=== PATIENT | male | born 1945 | race Two or more races ===

== ENCOUNTER 2022-05-29 22:26 | Inpatient (IN) | payer OTHER ==
[~2022-05-29] VITALS: Ht 170.2 cm; Wt 115.7 kg
[2022-05-29 22:40] VITALS: BP 128/58
[2022-05-29 23:01] VITALS: BP 133/57
[2022-05-29] MEDS ORDERED: HYDROCODONE/APAP 5/325MG TABLET PO PRN (23:30)
[2022-05-29] MEDS ORDERED: MORPHINE SULFATE INJ 2 MG/ML DISP.SYRIN IV PRN (23:30)
[2022-05-29] MEDS ORDERED: DEXTROSE 50%-WATER 50 ML DISP.SYRIN IV PRN (23:30)
[2022-05-29] MEDS ORDERED: MAGNESIUM HYDROXIDE 30 ML UDC PO PRN (23:30)
[2022-05-29] MEDS ORDERED: ONDANSETRON HCL/PF 4 MG/2 ML VIAL IVP PRN (23:30)
[2022-05-29] MEDS ORDERED: ACETAMINOPHEN 325 MG TABLET PO PRN (23:30)
[2022-05-29] MEDS ORDERED: MAG HYDROX/AL HYDROX/SIMETH 30 ML UDC PO PRN (23:30)
[2022-05-29] MEDS ORDERED: Z GUARD REMEDY 4 OZ OINT TP PRN (23:30)
[2022-05-30] VITALS (30 sets, daily range): BP systolic 93–143; BP diastolic 27–117
[2022-05-30 00:06] LABS: ABG BASE EXCESS 3.5 mmol/L; ABG OXYGEN SATURATION 85.8 % (92.0-98.5); ABG PCO2 60.3 mmHg (35.0-45.0); ABG PH 7.334 (7.350-7.450); ABG PO2 54.7 mmHg (75.0-100.0); COHb 0.8 % (0.5-1.5); MetHb 0.2 % (0.0-1.5); O2Hb 84.9 % (94.0-97.0); SITE, ABG Left Radial
[2022-05-30] MEDS: IPRATROPIUM NEB FS 0.5 MG/2.5 ML AMPUL.NEB NEB SCH ×5 (00:16→19:38)
[2022-05-30] MEDS: ALBUTEROL FS 2.5 MG/3 ML VIAL.NEB NEB SCH ×5 (00:16→19:38)
[2022-05-30] MEDS ORDERED: ENOXAPARIN SODIUM 40 MG/0.4 ML DISP.SYRIN SQ ONE (01:30)
[2022-05-30] MEDS ORDERED: CEFEPIME 1 GM in IV D5W 50 ML IV ONE (01:30)
[2022-05-30] MEDS ORDERED: CEFEPIME 1 GM VIAL ONE (02:37)
[2022-05-30 04:17] LABS: BASOPHILS % (AUTO) 0.1 % (0.0-2.0); HEMATOCRIT 46 % (39-51); HEMOGLOBIN 14.4 g/dL (13.5-17.5); LYMPHOCYTES # (AUTO) 0.4 K/uL (0.8-4.8); LYMPHOCYTES % (AUTO) 3.3 % (20.0-44.0); MEAN CORPUSCULAR HGB CONC 32 g/dl (31.0-36.0); MEAN CORPUSCULAR VOLUME 86 fL (80-96); MONOCYTES # (AUTO) 0.6 K/uL (0.1-1.30); MONOCYTES % (AUTO) 4.7 % (2.0-12.0); NEUTROPHILS # (AUTO) 12.4 K/uL (1.8-8.9); NEUTROPHILS % (AUTO) 91.9 % (43.0-81.0); PLATELET COUNT (AUTO) 181 K/uL (150-450); RED BLOOD CELL COUNT(AUTO) 5.31 MIL/uL (4.5-6.0); WHITE BLOOD COUNT (AUTO) 13.5 K/uL (4.3-11.0)
[2022-05-30 04:27] LABS: ALANINE AMINOTRANSFERASE 20 U/L (12-78); ALBUMIN 2.9 g/dL (3.4-5.0); ALKALINE PHOSPHATASE 83 U/L (46-116); ASPARTATE AMINOTRANSFERASE 13 U/L (15-37); BILIRUBIN,DIRECT 0.1 mg/dL (0.0-0.2); BILIRUBIN,TOTAL 0.4 mg/dL (0.2-1.0); CALCIUM, SERUM 8.6 mg/dL (8.5-10.1); CARBON DIOXIDE 37 mmol/L (21-32); CHLORIDE 101 mmol/L (98-107); CREATININE 1.3 mg/dL (0.6-1.3); GLUCOSE 180 mg/dL (74-106); MAGNESIUM 2.2 mg/dL (1.8-2.4); PHOSPHORUS 4.8 mg/dL (2.5-4.9); POTASSIUM 4.3 mmol/L (3.5-5.1); SODIUM SERUM 140 mmol/L (136-145); TOTAL PROTEIN, SERUM 6.7 g/dL (6.4-8.2); UREA NITROGEN, BLOOD 32 mg/dL (7-18)
[2022-05-30 04:29] LABS: CHOLESTEROL 131 mg/dL (<200); HDL CHOLESTEROL 58 mg/dL (40-60); LDL 51 mg/dL (0-99); TRIGLYCERIDES 109 mg/dL (30-150)
[2022-05-30] MEDS ORDERED: methylPREDNISolone SOD SUCC 40 MG/ML VIAL IV SCH (05:00)
[2022-05-30 05:09] LABS: ABG BASE EXCESS 6.9 mmol/L; ABG OXYGEN SATURATION 97.5 % (92.0-98.5); ABG PCO2 75.1 mmHg (35.0-45.0); ABG PH 7.303 (7.350-7.450); ABG PO2 108.2 mmHg (75.0-100.0); AaDO2 529.7 mmHg; COHb 0.5 % (0.5-1.5); MetHb 0.2 % (0.0-1.5); O2Hb 96.8 % (94.0-97.0); SITE, ABG Left Radial
[2022-05-30] MEDS: BLOOD SUGAR DIAGNOSTIC 1 EACH STRIP IN SCH ×4 (07:30→21:17)
[2022-05-30] MEDS ORDERED: ASCO500C18 PO (08:05)
[2022-05-30] MEDS ORDERED: MEMA10TA56 PO (08:05)
[2022-05-30] MEDS ORDERED: ROSU40TA23 PO (08:05)
[2022-05-30] MEDS ORDERED: LOSA50TA39 PO (08:05)
[2022-05-30] MEDS ORDERED: CLOP75TA15 PO (08:05)
[2022-05-30] MEDS ORDERED: CITA10TA9 PO (08:05)
[2022-05-30] MEDS: FUROSEMIDE 40 MG/4 ML VIAL IV SCH ×3 (08:18→17:38)
[2022-05-30] MEDS: PANTOPRAZOLE 40 MG TABLET.DR PO SCH (08:18)
[2022-05-30] MEDS: CEFEPIME 2 GM in IV D5W 100 ML IV SCH ×2 (08:24→21:09)
[2022-05-30] MEDS: INSULIN REGULAR, HUMAN 100 UNIT/ML 3 ML VIAL SQ PRN ×3 (08:38→17:40)
[2022-05-30 12:41] LABS: THYROID STIMULATING HORMONE 1.375 uIU/mL (0.358-3.74)
[2022-05-30] MEDS: ACETYLCYSTEINE 10% SOLN 400 MG/4 ML VIAL NEB SCH ×2 (14:33→23:30)
[2022-05-30] MEDS ORDERED: FUROSEMIDE 40 MG/4 ML VIAL IV SCH (17:30)
[2022-05-30] MEDS: ENOXAPARIN SODIUM 40 MG/0.4 ML DISP.SYRIN SQ SCH (21:06)
[2022-05-31] VITALS (24 sets, daily range): BP systolic 91–155; BP diastolic 42–88
[2022-05-31] MEDS ORDERED: CEFEPIME 1 GM in IV D5W 50 ML IV SCH (01:30)
[2022-05-31 05:12] LABS: EOSINOPHILS % (AUTO) 0.3 % (0.0-6.0); HEMATOCRIT 49 % (39-51); HEMOGLOBIN 15.5 g/dL (13.5-17.5); LYMPHOCYTES # (AUTO) 1.1 K/uL (0.8-4.8); LYMPHOCYTES % (AUTO) 7.8 % (20.0-44.0); MEAN CORPUSCULAR HGB CONC 31 g/dl (31.0-36.0); MEAN CORPUSCULAR VOLUME 85 fL (80-96); MONOCYTES # (AUTO) 1.4 K/uL (0.1-1.30); MONOCYTES % (AUTO) 10.3 % (2.0-12.0); NEUTROPHILS # (AUTO) 11.3 K/uL (1.8-8.9); NEUTROPHILS % (AUTO) 81.6 % (43.0-81.0); PLATELET COUNT (AUTO) 191 K/uL (150-450); RED BLOOD CELL COUNT(AUTO) 5.79 MIL/uL (4.5-6.0); WHITE BLOOD COUNT (AUTO) 13.8 K/uL (4.3-11.0)
[2022-05-31 05:29] LABS: ALANINE AMINOTRANSFERASE 19 U/L (12-78); ALKALINE PHOSPHATASE 85 U/L (46-116); ASPARTATE AMINOTRANSFERASE 12 U/L (15-37); BILIRUBIN,TOTAL 0.5 mg/dL (0.2-1.0); CALCIUM, SERUM 8.8 mg/dL (8.5-10.1); CHLORIDE 98 mmol/L (98-107); CREATININE 1.3 mg/dL (0.6-1.3); GLUCOSE 148 mg/dL (74-106); MAGNESIUM 2.7 mg/dL (1.8-2.4); PHOSPHORUS 4.7 mg/dL (2.5-4.9); POTASSIUM 4.3 mmol/L (3.5-5.1); SODIUM SERUM 141 mmol/L (136-145); UREA NITROGEN, BLOOD 43 mg/dL (7-18)
[2022-05-31 05:49] LABS: CARBON DIOXIDE 44 mmol/L (21-32)
[2022-05-31] MEDS: ACETYLCYSTEINE 10% SOLN 400 MG/4 ML VIAL NEB SCH ×4 (07:35→23:28)
[2022-05-31] MEDS: IPRATROPIUM NEB FS 0.5 MG/2.5 ML AMPUL.NEB NEB SCH ×5 (07:35→20:09)
[2022-05-31] MEDS: ALBUTEROL FS 2.5 MG/3 ML VIAL.NEB NEB SCH ×5 (07:35→20:09)
[2022-05-31] MEDS: BLOOD SUGAR DIAGNOSTIC 1 EACH STRIP IN SCH ×4 (07:59→21:43)
[2022-05-31] MEDS: PANTOPRAZOLE 40 MG TABLET.DR PO SCH (08:48)
[2022-05-31] MEDS: CEFEPIME 2 GM in IV D5W 100 ML IV SCH ×2 (08:48→21:08)
[2022-05-31] MEDS: ASPIRIN 81 MG TAB.CHEW PO SCH (08:48)
[2022-05-31 09:52] LABS: ABG BASE EXCESS 9.1 mmol/L; ABG OXYGEN SATURATION 93.8 % (92.0-98.5); ABG PCO2 60.3 mmHg (35.0-45.0); ABG PH 7.401 (7.350-7.450); ABG PO2 71.1 mmHg (75.0-100.0); AaDO2 115.6 mmHg; MetHb 0.2 % (0.0-1.5); O2Hb 92.7 % (94.0-97.0); SITE, ABG Left Brachial; VENT MODE, BG 5 L NC
[2022-05-31] MEDS: LOSARTAN POTASSIUM 50 MG TABLET PO SCH (12:30)
[2022-05-31] MEDS ORDERED: Medication Not On Formulary EA (Rosuvastatin Calcium 1 TAB) PO SCH (12:30)
[2022-05-31] MEDS ORDERED: Medication Not On Formulary EA (Ascorbic Acid (Vitamin C) 500 MG) PO SCH (12:30)
[2022-05-31] MEDS ORDERED: MEMANTINE HCL PO SCH (12:30)
[2022-05-31] MEDS: INSULIN REGULAR, HUMAN 100 UNIT/ML 3 ML VIAL SQ PRN ×2 (12:54→21:46)
[2022-05-31] MEDS: ASCORBIC ACID 500 MG TABLET PO SCH (14:55)
[2022-05-31] MEDS: CLOPIDOGREL BISULFATE 75 MG TABLET PO SCH (14:55)
[2022-05-31] MEDS: CITALOPRAM HYDROBROMIDE 10 MG TABLET PO SCH (14:56)
[2022-05-31] MEDS: MEMANTINE HCL 5 MG TABLET PO SCH (18:13)
[2022-05-31] MEDS: ATORVASTATIN 40 MG TABLET PO SCH (21:44)
[2022-05-31] MEDS: ENOXAPARIN SODIUM 40 MG/0.4 ML DISP.SYRIN SQ SCH (21:45)
[2022-06-01] VITALS (27 sets, daily range): BP systolic 91–146; BP diastolic 16–91
[2022-06-01] MEDS: ACETYLCYSTEINE 10% SOLN 400 MG/4 ML VIAL NEB SCH ×2 (07:35→14:47)
[2022-06-01] MEDS: ALBUTEROL FS 2.5 MG/3 ML VIAL.NEB NEB SCH ×4 (07:35→20:12)
[2022-06-01] MEDS: IPRATROPIUM NEB FS 0.5 MG/2.5 ML AMPUL.NEB NEB SCH ×4 (07:35→20:12)
[2022-06-01] MEDS: PANTOPRAZOLE 40 MG TABLET.DR PO SCH (07:57)
[2022-06-01] MEDS: BLOOD SUGAR DIAGNOSTIC 1 EACH STRIP IN SCH ×4 (07:57→22:02)
[2022-06-01] MEDS: LOSARTAN POTASSIUM 50 MG TABLET PO SCH (09:00)
[2022-06-01] MEDS: ASPIRIN 81 MG TAB.CHEW PO SCH (10:43)
[2022-06-01] MEDS: CLOPIDOGREL BISULFATE 75 MG TABLET PO SCH (10:43)
[2022-06-01] MEDS: MEMANTINE HCL 5 MG TABLET PO SCH ×2 (10:43→17:09)
[2022-06-01] MEDS: ASCORBIC ACID 500 MG TABLET PO SCH (10:44)
[2022-06-01] MEDS: CITALOPRAM HYDROBROMIDE 10 MG TABLET PO SCH (10:44)
[2022-06-01] MEDS: acetaZOLAMIDE SODIUM 500 MG/VIAL VIAL IV SCH (10:46)
[2022-06-01] MEDS: CEFEPIME 2 GM in IV D5W 100 ML IV SCH ×2 (10:46→21:01)
[2022-06-01] MEDS: INSULIN REGULAR, HUMAN 100 UNIT/ML 3 ML VIAL SQ PRN ×2 (13:11→21:28)
[2022-06-01] MEDS: IV NS 0.9% 250 ML IV PRN (21:10)
[2022-06-01] MEDS: ATORVASTATIN 40 MG TABLET PO SCH (21:26)
[2022-06-01] MEDS: ENOXAPARIN SODIUM 40 MG/0.4 ML DISP.SYRIN SQ SCH (21:27)
[2022-06-02] VITALS (24 sets, daily range): BP systolic 90–136; BP diastolic 42–112
[2022-06-02] MEDS: PANTOPRAZOLE 40 MG TABLET.DR PO SCH (07:18)
[2022-06-02] MEDS: BLOOD SUGAR DIAGNOSTIC 1 EACH STRIP IN SCH ×4 (07:18→21:43)
[2022-06-02 07:25] LABS: BASOPHILS % (AUTO) 0.1 % (0.0-2.0); EOSINOPHILS % (AUTO) 3.5 % (0.0-6.0); HEMATOCRIT 47 % (39-51); HEMOGLOBIN 15.4 g/dL (13.5-17.5); LYMPHOCYTES # (AUTO) 0.8 K/uL (0.8-4.8); LYMPHOCYTES % (AUTO) 9.7 % (20.0-44.0); MEAN CORPUSCULAR HGB CONC 33 g/dl (31.0-36.0); MEAN CORPUSCULAR VOLUME 84 fL (80-96); MONOCYTES % (AUTO) 12.5 % (2.0-12.0); NEUTROPHILS % (AUTO) 74.2 % (43.0-81.0); PLATELET COUNT (AUTO) 175 K/uL (150-450); RED BLOOD CELL COUNT(AUTO) 5.57 MIL/uL (4.5-6.0); WHITE BLOOD COUNT (AUTO) 8.1 K/uL (4.3-11.0)
[2022-06-02 07:47] LABS: CALCIUM, SERUM 8.8 mg/dL (8.5-10.1); CREATININE 0.9 mg/dL (0.6-1.3); POTASSIUM 4.3 mmol/L (3.5-5.1)
[2022-06-02] MEDS: IPRATROPIUM NEB FS 0.5 MG/2.5 ML AMPUL.NEB NEB SCH ×4 (07:58→20:26)
[2022-06-02] MEDS: ACETYLCYSTEINE 10% SOLN 400 MG/4 ML VIAL NEB SCH ×3 (07:58→14:48)
[2022-06-02] MEDS: ALBUTEROL FS 2.5 MG/3 ML VIAL.NEB NEB SCH ×4 (07:58→20:26)
[2022-06-02] MEDS: CEFEPIME 2 GM in IV D5W 100 ML IV SCH ×3 (08:19→20:02)
[2022-06-02] MEDS: ASPIRIN 81 MG TAB.CHEW PO SCH (08:25)
[2022-06-02] MEDS: CITALOPRAM HYDROBROMIDE 10 MG TABLET PO SCH (08:25)
[2022-06-02] MEDS: ASCORBIC ACID 500 MG TABLET PO SCH (08:25)
[2022-06-02] MEDS: MEMANTINE HCL 5 MG TABLET PO SCH ×2 (08:25→17:44)
[2022-06-02] MEDS: acetaZOLAMIDE SODIUM 500 MG/VIAL VIAL IV SCH (08:27)
[2022-06-02] MEDS: CLOPIDOGREL BISULFATE 75 MG TABLET PO SCH ×2 (09:00→09:46)
[2022-06-02] MEDS: LOSARTAN POTASSIUM 50 MG TABLET PO SCH ×2 (09:00→09:45)
[2022-06-02] MEDS ORDERED: FENTANYL PF 100MCG/2ML AMPUL ONE (09:20)
[2022-06-02] MEDS ORDERED: FAMOTIDINE/PF INJ 20 MG/2 ML VIAL IV ONE (09:21)
[2022-06-02] MEDS ORDERED: SUCCINYLCHOLINE CHLORIDE 20 MG/ML VIAL ONE (09:21)
[2022-06-02] MEDS: INSULIN REGULAR, HUMAN 100 UNIT/ML 3 ML VIAL SQ PRN (13:48)
[2022-06-02] MEDS: IV NS 0.9% 250 ML IV PRN (20:02)
[2022-06-02] MEDS: ENOXAPARIN SODIUM 40 MG/0.4 ML DISP.SYRIN SQ SCH (21:42)
[2022-06-02] MEDS: ATORVASTATIN 40 MG TABLET PO SCH (21:42)
[2022-06-03] VITALS (26 sets, daily range): BP systolic 70–127; BP diastolic 25–92
[2022-06-03] MEDS: ACETYLCYSTEINE 10% SOLN 400 MG/4 ML VIAL NEB SCH ×3 (00:14→14:49)
[2022-06-03] MEDS: CEFEPIME 2 GM in IV D5W 100 ML IV SCH ×3 (05:04→21:00)
[2022-06-03] MEDS: ALBUTEROL FS 2.5 MG/3 ML VIAL.NEB NEB SCH ×4 (07:16→19:54)
[2022-06-03] MEDS: IPRATROPIUM NEB FS 0.5 MG/2.5 ML AMPUL.NEB NEB SCH ×4 (07:16→19:54)
[2022-06-03] MEDS: BLOOD SUGAR DIAGNOSTIC 1 EACH STRIP IN SCH ×4 (08:07→21:03)
[2022-06-03] MEDS: PANTOPRAZOLE 40 MG TABLET.DR PO SCH (08:07)
[2022-06-03] MEDS: MEMANTINE HCL 5 MG TABLET PO SCH ×2 (08:08→17:22)
[2022-06-03] MEDS: ASCORBIC ACID 500 MG TABLET PO SCH (08:09)
[2022-06-03] MEDS: ASPIRIN 81 MG TAB.CHEW PO SCH (08:09)
[2022-06-03] MEDS: CITALOPRAM HYDROBROMIDE 10 MG TABLET PO SCH (08:09)
[2022-06-03] MEDS: LOSARTAN POTASSIUM 50 MG TABLET PO SCH (08:10)
[2022-06-03] MEDS: acetaZOLAMIDE SODIUM 500 MG/VIAL VIAL IV SCH (08:11)
[2022-06-03] MEDS: methylPREDNISolone SOD SUCC 125 MG/2ML VIAL IV SCH ×2 (13:26→17:13)
[2022-06-03] MEDS: INSULIN REGULAR, HUMAN 100 UNIT/ML 3 ML VIAL SQ PRN ×3 (13:33→21:08)
[2022-06-03 15:20] LABS: ABG BASE EXCESS 4.8 mmol/L; ABG OXYGEN SATURATION 92.4 % (92.0-98.5); ABG PCO2 52.3 mmHg (35.0-45.0); ABG PH 7.392 (7.350-7.450); ABG PO2 61.6 mmHg (75.0-100.0); AaDO2 112.6 mmHg; COHb 1.4 % (0.5-1.5); MetHb 0.2 % (0.0-1.5); O2Hb 90.9 % (94.0-97.0); SITE, ABG Right Radial; VENT MODE, BG nasal cannula
[2022-06-03] MEDS: ENOXAPARIN SODIUM 40 MG/0.4 ML DISP.SYRIN SQ SCH (21:03)
[2022-06-03] MEDS: ATORVASTATIN 40 MG TABLET PO SCH (21:03)
== END 2022-06-03 23:12 | disposition short-term general hospital (02) | DRG 205 ==
LOC: ICU 22:26
PROVIDERS: ADMIT Nurse Practitioner Family; ATTEND Internal Medicine
PROC: 5A09457 Assistance with Respiratory Ventilation, 24-96 Consecutive Hours, Continuous Positive Airway Pressure (ICD-10-PCS; principal; 2022-05-29)
PROC: 05HD33Z Insertion of Infusion Device into Right Cephalic Vein, Percutaneous Approach (ICD-10-PCS; 2022-05-30)
DX: T17.990A Other foreign object in respiratory tract, part unspecified in causing asphyxiation, initial encounter (principal); A41.9 Sepsis, unspecified organism; G93.41 Metabolic encephalopathy; I21.A1 Myocardial infarction type 2; J96.01 Acute respiratory failure with hypoxia; J96.02 Acute respiratory failure with hypercapnia; J18.9 Pneumonia, unspecified organism; I50.33 Acute on chronic diastolic (congestive) heart failure; N17.0 Acute kidney failure with tubular necrosis; J98.11 Atelectasis; D68.59 Other primary thrombophilia; E66.2 Morbid (severe) obesity with alveolar hypoventilation; J90 Pleural effusion, not elsewhere classified; E87.4 Mixed disorder of acid-base balance; J44.9 Chronic obstructive pulmonary disease, unspecified; I71.4 Abdominal aortic aneurysm, without rupture; Z86.73 Personal history of transient ischemic attack (TIA), and cerebral infarction without residual deficits; Z74.09 Other reduced mobility; F01.50 Vascular dementia, unspecified severity, without behavioral disturbance, psychotic disturbance, mood disturbance, and anxiety; Z87.891 Personal history of nicotine dependence; Z86.79 Personal history of other diseases of the circulatory system; E11.9 Type 2 diabetes mellitus without complications; X58.XXXA Exposure to other specified factors, initial encounter; Y92.9 Unspecified place or not applicable
CPT/HCPCS: 36410; 36415; 36600; 71045-TC; 71250-TC; 80048-TC; 80053-TC; 80061-TC; 80076-TC; 82803-TC; 82962-TC; 83735-TC; 84100-TC; 84439-TC; 84443-TC; 84484-TC; 85025-TC; 85610-TC; 85730-TC; 93307-TC; 94760-TC; 94799-TC; G0378; J0330; J0692; J1120; J1650; J1815; J1940; J2920; J2930; J3010; J3490; J7050; J7060

== ENCOUNTER 2023-11-20 19:06 | Emergency (ER) | payer OTHER ==
[~2023-11-20] VITALS: Ht 175.3 cm; Wt 115.7 kg
[~2023-11-20 19:06] MED LIST: ASCO500C18 PO; CITA10TA9 PO; CLOP75TA15 PO; LOSA50TA39 PO; MEMA10TA56 PO; ROSU40TA23 PO
[2023-11-20] MEDS ORDERED: ACETAMINOPHEN ES 500 MG TABLET ONE (19:25)
[2023-11-20] MEDS ORDERED: CEFTRIAXONE 1GM BAG (ER ONLY) 50 ML IV ONE ×2 (19:25→19:30)
[2023-11-20] MEDS ORDERED: AZITHROMYCIN 500 MG in IV D5W 250 ML IV ONE (19:30)
[2023-11-20] MEDS ORDERED: ACETAMINOPHEN ES 500 MG TABLET PO ONE (19:30)
[2023-11-20] MEDS ORDERED: IV NS 0.9% 500 ML BAG IV ONE (19:30)
[2023-11-20 19:41] LABS: BASOPHILS % (AUTO) 0.1 % (0.0-2.0); HEMATOCRIT 40 % (39-51); HEMOGLOBIN 12.8 g/dL (13.5-17.5); LYMPHOCYTES # (AUTO) 1.2 K/uL (0.8-4.8); LYMPHOCYTES % (AUTO) 4.6 % (20.0-44.0); MEAN CORPUSCULAR HEMOGLOBIN 25 PG (26.0-33.0); MEAN CORPUSCULAR HGB CONC 32 g/dl (31.0-36.0); MEAN CORPUSCULAR VOLUME 79 fL (80-96); MONOCYTES # (AUTO) 2.5 K/uL (0.1-1.30); MONOCYTES % (AUTO) 9.8 % (2.0-12.0); NEUTROPHILS # (AUTO) 21.9 K/uL (1.8-8.9); NEUTROPHILS % (AUTO) 85.5 % (43.0-81.0); PLATELET COUNT (AUTO) 332 K/uL (150-450); RED BLOOD CELL COUNT(AUTO) 5.08 MIL/uL (4.5-6.0); RED CELL DISTRIBUTION WIDTH 16.2 % (11.5-15.0); WHITE BLOOD COUNT (AUTO) 25.7 K/uL (4.3-11.0)
[2023-11-20 19:49] LABS: CALCIUM, SERUM 9.3 mg/dL (8.5-10.1); CARBON DIOXIDE 22 mmol/L (21-32); CHLORIDE 101 mmol/L (98-107); CREATININE 1.3 mg/dL (0.6-1.3); GLUCOSE 187 mg/dL (74-106); POTASSIUM 3.9 mmol/L (3.5-5.1); SODIUM SERUM 135 mmol/L (136-145); UREA NITROGEN, BLOOD 25 mg/dL (7-18)
[2023-11-20] MEDS ORDERED: AZITHROMYCIN 500 MG VIAL ONE (19:50)
[2023-11-20 19:58] LABS: LACTIC ACID 1.4 mmol/L (0.4-2.0)
[2023-11-20 20:04] LABS: ALANINE AMINOTRANSFERASE 25 U/L (12-78); ALBUMIN 2.9 g/dL (3.4-5.0); ALKALINE PHOSPHATASE 99 U/L (46-116); ASPARTATE AMINOTRANSFERASE 10 U/L (15-37); BILIRUBIN,DIRECT 0.2 mg/dL (0.0-0.2); BILIRUBIN,TOTAL 0.6 mg/dL (0.2-1.0); NT-PRO BNP 1185 pg/mL (0-125); TOTAL PROTEIN, SERUM 7.4 g/dL (6.4-8.2)
[2023-11-20 20:11] LABS: INR 1.11 (0.91-1.10); PARTIAL THROMBOPLASTIN TIME 31.6 SEC (24.3-34.3); PROTHROMBIN TIME 11.7 SECS (9.2-11.1)
[2023-11-20] MEDS ORDERED: methylPREDNISolone SOD SUCC 125 MG/2ML VIAL ONE (20:51)
[2023-11-20] MEDS ORDERED: methylPREDNISolone SOD SUCC 125 MG/2ML VIAL IV ONE (21:00)
[2023-11-20] MEDS ORDERED: ALBUTEROL FS 2.5 MG/3 ML VIAL.NEB NEB ONE (21:00)
[2023-11-20] MEDS ORDERED: IPRATROPIUM NEB FS 0.5 MG/2.5 ML AMPUL.NEB NEB ONE (21:00)
[2023-11-20 21:28] LABS: LYMPHOCYTES % (MANUAL) 6 % (16-48); MONOCYTES % (MANUAL) 3 % (0-11.0); NEUTROPHILS % (MANUAL) 89 (42-76); PLATELET ESTIMATE ADEQU; REACTIVE LYMPHOCYTES 2 % (0-0)
[2023-11-20 21:29] LABS: ANISOCYTOSIS 1+
[2023-11-20] MEDS ORDERED: ALBUTEROL FS 2.5 MG/3 ML VIAL.NEB ONE (22:13)
[2023-11-20] MEDS ORDERED: IPRATROPIUM NEB FS 0.5 MG/2.5 ML AMPUL.NEB ONE (22:13)
[2023-11-20 22:15] VITALS: O2SAT 94
[2023-11-20 22:25] VITALS: O2SAT 99
[2023-11-20 22:35] VITALS: O2SAT 98
[2023-11-21 01:52] VITALS: BP 111/52; TEMP 98.8; O2SAT 95
[2023-11-21 13:51] LABS: ABG BASE EXCESS -2.6 mmol/L; ABG OXYGEN SATURATION 94.2 % (92.0-98.5); ABG PCO2 31.5 mmHg (35.0-45.0); ABG PH 7.435 (7.350-7.450); ABG PO2 69.1 mmHg (75.0-100.0); COHb 0.1 % (0.5-1.5); MetHb 0.1 % (0.0-1.5); SITE, ABG Left Radial; VENT MODE, BG Nasal Cannula
== END 2023-11-21 03:08 | disposition short-term general hospital (02) ==
LOC: ER 19:06
DX: J44.1 Chronic obstructive pulmonary disease with (acute) exacerbation (principal); J18.9 Pneumonia, unspecified organism; I11.0 Hypertensive heart disease with heart failure; I50.9 Heart failure, unspecified; E11.9 Type 2 diabetes mellitus without complications; Z20.822 Contact with and (suspected) exposure to COVID-19
CPT/HCPCS: 99291; 96365; 71045; 96367; 96375; 87426; 93005; 82803; 87804 ×2; 84145; 85025; 80048; 87040 ×2; 83605; 80076; 36415; 84484; 85730; 83880; 36600 ×2; 85007; 94640 ×2; J2930; J7040; J0456; A4349; J0696; J7060